=== PATIENT | female | born 2000 | race Caucasian/White ===

== ENCOUNTER 2019-08-30 15:54 | Emergency (ER) | payer SELFPAY ==
[~2019-08-30] VITALS: Ht 162.6 cm; Wt 95.5 kg
[2019-08-30 15:59] VITALS: BP 144/86; TEMP 97.4
[2019-08-30 19:10] VITALS: PULSE 59
== END 2019-08-30 19:10 | disposition home or self-care (01) ==
LOC: COL.ER 15:54
DX: R51 Headache (principal)
CPT/HCPCS: J1885